=== PATIENT | female | born 1950 | race African-American/Black ===

== ENCOUNTER 2017-10-14 07:17 | Emergency (ER) | payer MEDICARE ==
[2017-10-14 07:35] VITALS: BP 161/77
--- NOTE | 2017-10-14 07:57 | UC ---
Headache HPI - HPI Summary HPI Summary: PT HAS HAD CONSTANT DIA FOR MONTHS. CAN NOT DESCRIBE IT. STATES HER HEAD IS TENDER TO TOUCH ON THE TOP AND THE BACK - RIGHT WHERE HER DIA IS. WAS GIVEN FIORICET BY HER PCP WHICH HELPS TRANSIENTLY BUT SOON IT WEARS OFF THE DIA RETURNS. NOT WORSE AT ANY PARTICULAR TIME OF DAY. DENIES ANY TRAUMA OR HEAD INJURY. IS NOT A DIA PERSON USUALLY. DENIES VISUAL DISTURBANCE, NAUSEA, PHOTOPHOBIA, PHONOPHOBIA, FOCAL NEUROLOGIC DEFICITS. - History Of Current Complaint Chief Complaint: UCHeadache Stated Complaint: headache Time Seen by Provider: 10/14/17 07:33 Hx Obtained From: Patient, Family/[place] Flaker - SON Onset/Duration: Lasting Weeks, Still Present Currently Pain Is: Moderate Pain Intensity: 9 Pain Scale Used: 0-10 Numeric Timing: Constant Character: Unable To Describe Location of Headache: Occipital Aggravating Factor(s): Other - TOUCH Allevating Factor(s): Medication Associated Signs And Symptoms: Positive: Negative - Allergies/Home Medications Allergies/Adverse Reactions: Allergies Allergy/AdvReac Type Severity Reaction Status Date / Time No Known Allergies Allergy Verified 10/14/17 07:23 Home Medications: Home Medications Fioricet TAB* 10/14/17 [History] PMH/Surg Hx/FS Hx/Imm Hx Cardiovascular History: Hypertension - Surgical History Surgical History: Yes Surgery Procedure, Year, and Place: hysterectomy 1978 IN [place]. 2 SURGERIES ON FIBROIDS IN [place]. [facility] [place] - Family History Known Family History: Positive: Hypertension - Social History Alcohol Use: None Substance Use Type: None Smoking Status (MU): Never Smoked Tobacco Review of Systems Constitutional: Negative Eyes: Negative Respiratory: Negative Cardiovascular: Negative Gastrointestinal: Negative Neurological: Headache All Other Systems Reviewed And Are Negative: Yes Physical Exam Triage Information Reviewed: Yes Appearance: Well-Appearing, No Pain Distress, Well-Nourished Vital Signs: Initial Vital Signs Temp 97.9 F 10/14/17 07:25 Pulse 61 10/14/17 07:25 Resp 16 10/14/17 07:25 BP 161/77 10/14/17 07:25 Pulse Ox 99 10/14/17 07:25 Vital Signs Reviewed: Yes Eyes: Positive: Conjunctiva Clear ENT: Positive: Hearing grossly normal Neck: Positive: Supple, Nontender, No Lymphadenopathy Respiratory Exam: Normal Cardiovascular Exam: Normal Abdomen Description: Positive: Soft Musculoskeletal: Positive: No Edema, Other: - TTP VERTEX OF SCALP AND RIGHT OCCIPITAL Neurological: Positive: Alert, Muscle Tone Normal, Other: - CN II-XII GROSSLY INTACT. Psychological: Positive: Age Appropriate Behavior Skin: Negative: rashes Headache Course/Dx - Course Course Of Treatment: TO [facility] BY PRIVATE CAR - Differential Dx/Diagnosis Provider Diagnoses: HEADACHE Discharge - Discharge Plan Condition: Stable Disposition: OTHER Discharge Disposition Comment: TO [facility] BY PRIVATE CAR Patient Education Materials: General Headache (ED) Referrals: Rudolph Cordero MD [Primary Care Provider] - If Needed Additional Instructions: GO DIRECTLY TO [facility] FOR FURTHER EVALUATION.
== END 2017-10-14 07:53 ==
LOC: UCEAST 07:17
DX: R51 Headache (principal); I10 Essential (primary) hypertension
CPT/HCPCS: 99212; G0463

== ENCOUNTER 2017-10-14 08:17 | Emergency (ER) | payer MEDICARE ==
--- NOTE | 2017-10-14 09:12 | ED ---
Headache - HPI Summary HPI Summary: Patient presents to the ED from . She states she has been experiencing constant, throbbing and stabbing pain to the top of the scalp and right occipital scalp x "several months" but is unsure exactly how long. She denies trauma or other injury. Denies history of migraines. She takes lisinopril and amlodipine for hypertension and a statin for hypercholestrolemia. She has been seen by her PCP for this and given Fiorcet. She states the pain will subside for moments, but unless she remains on it constantly, the DIA will return. Denies brain CT recently or ever to her knowledge. BP has been high but has always been under 170/95 range. Pain is not better or worse with position or time of day. She states "its just always there." While she notes to a DIA, she states the worse symptom is the scalp pain. Pain is 8/10. Denies visual changes, neurological deficits, memory loss, confusion or unstable gait. - History Of Current Complaint Chief Complaint: EDHeadache Stated Complaint: HEADACE COMING FROM CC Time Seen by Provider: 10/14/17 08:36 Hx Obtained From: Patient Onset/Duration: Gradual Onset, Other - months ago Initially Headache Was: Initial Pain Scale(0-10)= - 8 Currently Pain Is: Current Pain Scale(0-10)= - 8 Timing: Constant Character: Sharp, Throbbing Location of Headache: Parietal, Occipital Aggravating Factor: Nothing Allevating Factors: Nothing Associated Signs And Symptoms: Negative - Risk Factors SAH Risk Factors: -Latvian, Hypertension Meningitis Risk Factors: Negative SDH Risk Factors: Negative Temporal Arteritis Risk Factors: Greater Than 60 Years Old - Allergies/Home Medications Allergies/Adverse Reactions: Allergies Allergy/AdvReac Type Severity Reaction Status Date / Time No Known Allergies Allergy Verified 10/14/17 07:23 PMH/Surg Hx/FS Hx/Imm Hx Previously Healthy: Yes Endocrine/Hematology History: Denies: Hx Diabetes Cardiovascular History: Reports: Hx Hypertension Denies: Hx Pacemaker/ICD History: Denies: Hx Dialysis, Hx Renal Disease Sensory History: Denies: Hx Hearing Aid Psychiatric History: Denies: Hx Panic Disorder - Cancer History Cancer Type, Location and Year: Ovarian CA 2001 - Surgical History Surgery Procedure, Year, and Place: hysterectomy 1978 IN [place]. 2 SURGERIES ON FIBROIDS IN [place]. [place]SE [place] Infectious Disease History: No Infectious Disease History: Denies: Traveled Outside the [place] in Last 30 Days - Family History Known Family History: Positive: Hypertension - Social History Occupation: Unemployed Lives: With Family Alcohol Use: None Hx Substance Use: No Substance Use Type: Reports: None Hx Tobacco Use: No Smoking Status (MU): Never Smoked Tobacco Review of Systems Constitutional: Negative Negative: Fever, Chills, Fatigue Negative: Photophobia, Blurred Vision, Diplopia, Drainage ENT: Negative Respiratory: Negative Positive: no symptoms reported, see HPI Musculoskeletal: Negative Skin: Negative Neurological: Negative All Other Systems Reviewed And Are Negative: Yes Physical Exam Triage Information Reviewed: Yes Vital Signs On Initial Exam: Initial Vitals Temp Pulse Resp BP Pulse Ox 97.1 F 61 18 162/76 96 10/14/17 08:19 10/14/17 08:19 10/14/17 08:19 10/14/17 08:19 10/14/17 08:19 Vital Signs Reviewed: Yes Appearance: Positive: Well-Appearing, No Pain Distress, Well-Nourished Skin: Positive: Skin Color Reflects Adequate Perfusion Head/Face: Positive: Scalp - tenderness to the vertex and occipital. Negative: Temporal Artery Tenderness, TMJ Tenderness, Cephalohematoma Eyes: Positive: EOMI, KEVIN, Conjunctiva Clear Neck: Positive: Supple, No Lymphadenopathy Respiratory/Lung Sounds: Positive: Clear to Auscultation, Breath Sounds Present Cardiovascular: Positive: Pulses are Symmetrical in both Upper and Lower Extremities Musculoskeletal: Positive: Strength/ROM Intact Neurological: Positive: Sensory/Motor Intact, Alert, Oriented to Person Place, Time, Speech Normal Psychiatric: Positive: Affect/Mood Appropriate AVPU Assessment: Alert - [place] Coma Scale Coma Scale Total: 15 Diagnostics - Vital Signs Vital Signs Temp Pulse Resp BP Pulse Ox 10/14/17 08:19 97.1 F 61 18 162/76 96 - Laboratory Lab Statement: Any lab studies that have been ordered have been reviewed, and results considered in the medical decision making process. Headache Course/Dx - Course Course Of Treatment: Patient presents from with CC of DIA x several months without relief from Fiorcet given by PCP. Brain CT shows no acute abnormalities. Discussed with patient treatment options. I recommend her to see a neurologist and I have given her a referral. She is given sumatriptan as a trial. If this medication is not improving symptoms, she is to stop the sumatriptan and restart the fiorcet. I have discussed the possibility of rebound DIA and dependency for taking Fiorcet for a lengthy amount of time. She agrees to follow up with Dr. Cordero and obtain an appt with neurology. DIA not worst of life. No temporal artery tenderness. BP slightly elevated. She continues to take her BP medications. - Diagnoses Differential Diagnosis/HQI/PQRI: Migraine, Temporal Arteritis, Tension Headache Provider Diagnoses: Headache Discharge - Discharge Plan Condition: Stable Disposition: HOME Prescriptions: SUMAtriptan TAB* [Imitrex TAB*] 50 mg PO Q2H PRN #20 tab MDD 300 PRN Reason: Pain Patient Education Materials: Sumatriptan (By mouth) Referrals: Rudolph Cordero MD [Primary Care Provider] - Katja Leyva MD [Medical Doctor] - Additional Instructions: Please follow up with Dr. Cordero next week I have given you a referral to our neurologist. Please make an appt Sumatriptan is to be taken at first onset of headache. For symptoms not relieved in 2 hours, you may then take another dose. Do not exceed a total of 6 tabs per day If symptoms do not improve with this medication, please return to the previous medication prescribed by Dr. Cordero
--- NOTE | 2017-10-14 09:39 | RAD ---
Indication: Headaches for [address] of the brain was performed without IV contrast. Ventricular structures are midline. No midline shift is noted. The extra-axial spaces are unremarkable there is no evidence of intracranial mass or hemorrhage. No other high or low density lesions are identified. Mastoid air cells and paranasal sinuses are unremarkable. In the transverse process of C1 vertebra is a focal defect in the anterior wall of the transverse foramen. This is of uncertain significance. There is a dehiscent right jugular foramen. IMPRESSION: No intracranial mass or hemorrhage is noted
[2017-10-14 09:58] VITALS: BP 121/71
== END 2017-10-14 09:57 | disposition home or self-care (01) ==
LOC: ED 08:17
DX: R51 Headache (principal)
CPT/HCPCS: 70450; 99282